=== PATIENT | female | born 1990 | race American Indian/Alaskan Native ===

== ENCOUNTER 2017-10-12 13:45 | Emergency (ER) | payer MEDICAID ==
[2017-10-12 14:05] VITALS: BP 134/90
[2017-10-12] MEDS ORDERED: ASPIRIN PO ONE (14:05)
[2017-10-12 14:34] LABS: Basophils # (Auto) 0.1 K/mm3 (0.0-0.1); Basophils % (Auto) 1.1 % (0.0-1.8); Eosinophils # (Auto) 0.1 K/mm3 (0.0-0.4); Eosinophils % (Auto) 0.7 % (0.0-4.3); Mean Corpuscular HGB Conc 28 % (30-34); Monocytes # (Auto) 1.1 K/mm3 (0.0-0.8); Platelet Count 510 K/mm3 (140-440); Red Blood Count 5.53 M/mm3 (3.65-5.03)
[2017-10-12 14:39] LABS: Hematocrit 35.2 % (30.3-42.9)
[2017-10-12 14:40] LABS: Mean Corpuscular Hemoglobin 18 pg (28-32); Mean Corpuscular Volume 64 fl (79-97); Red Cell Distribution Width 21.1 % (13.2-15.2)
[2017-10-12 14:52] LABS: BUN/Creatinine Ratio 20; Blood Urea Nitrogen 10 mg/dL (7-17); Calcium 9.1 mg/dL (8.4-10.2); Hemolysis Index 9
[2017-10-12 15:43] LABS: Bacteria,Urine 1+ /HPF (Negative); Bilirubin,Urine NEG (Negative); Blood,Urine LG (Negative); Color,Urine Yellow (Yellow); Nitrite,Urine NEG (Negative); Protein,Urine <15 mg/dL mg/dL (Negative); Urobilinogen,Urine < 2.0 mg/dL (<2.0)
[2017-10-12] MEDS ORDERED: TYLENOL ONE (16:23)
== END 2017-10-12 22:20 | disposition left against medical advice (07) ==
LOC: ED 13:45
DX: R06.02 Shortness of breath (principal); Z53.21 Procedure and treatment not carried out due to patient leaving prior to being seen by health care provider
CPT/HCPCS: 36415; 80048; 81001; 84484; 84702; 85025; 93005; 93010